=== PATIENT | female | born 1965 | race Caucasian/White ===

== ENCOUNTER 2017-04-21 19:58 | Emergency (ER) | payer SELFPAY ==
[~2017-04-21] VITALS: Ht 167.6 cm; Wt 109.0 kg
[2017-04-21 20:00] VITALS: BP 134/89
== END 2017-04-21 23:00 | disposition left against medical advice (07) ==
LOC: ER 20:00
DX: R51 Headache (principal); Z53.21 Procedure and treatment not carried out due to patient leaving prior to being seen by health care provider